=== PATIENT | male | born 1995 | race African-American/Black ===

== ENCOUNTER 2017-02-03 06:23 | Observation (INO) | payer BC ==
[2017-02-03] VITALS (8 sets, daily range): BP systolic 93–148; BP diastolic 45–81
[~2017-02-03] VITALS: Ht 182.9 cm; Wt 76.7 kg
--- NOTE | ~2017-02-03 | S ---
[facility] [place] [address] SURGICAL PATH RPT PROCEDURE Name: ALEX VILLA III Room #: 417-I [facility] Piper Davis#: [id number] Admission: 02/03/17 Date of : 89 Discharge: 02/04/17 Report #: [id number] Path Case #: [id number] PATHOLOGY REPORT COLLECTION DATE: 02/03/2017 RECEIVED DATE: 02/03/2017 SUBMITTING PHYS: Dr. Jered Azar OTHER PHYS: Dr. Cecilio Howard SPECIMEN(S) RECEIVED: A.Gallbladder * * * * * * * * * * * * FINAL DIAGNOSIS: Gallbladder, cholecystectomy: - Mild chronic cholecystitis. - Cholelithiasis. - Incidental lymph node. PATHOLOGIST: Liliana Acosta M.D. REPORT ELECTRONICALLY SIGNED BY: Liliana Acosta M.D. DATE/TIME: 02/05/2017 13:50 * * * * * * * * * * * * GROSS PATHOLOGY: Received in formalin labeled "Alex Villa III, gallbladder," is a 8.7 x 3.2 x 1.5 cm, previously opened and torn gallbladder with green wrinkled serosal surfaces. Opening the gallbladder reveals green yellow velvety mucosa and an average wall thickness of 0.2 cm. Calculi are present, yellow to green, firm and range in size from 1.3 to 2.8 cm in maximum dimensions. No masses are noted grossly. There is a lymph node located, inside the small amount of adipose tissue, near the stapled opening that measures 0.6 x 0.4 x 0.3 cm in maximum dimensions. The lymph node along with textiles sales representative sections from the body and fundus are submitted along with the proximal margin in cassette A1. (JAILYN; 02/04/2017) CLINICAL HISTORY: Cholelithiasis, cholecystitis INITIAL CPT CODE(S): A; 66143 Professional services performed by [facility] at [address] [address] SURGICAL PATH RPT PROCEDURE Name: ALEX VILLA [facility] Room #: [address] [place] [address] Piper Davis#: [id number] Admission: 02/03/17 Date of : 89 Discharge: 02/04/17 Report #: [id number] Path Case #: [id number] , [place] [address] Technical services performed by [facility] at [address] [place] [address], [address], [place] [address]. [facility] [id number] [address] [address] PHONE: [phone] DIRECTOR: Robert Snow M.D. * * * END OF REPORT * * *
[~2017-02-03 06:23] MED LIST: ACETAMINOPHEN-1 EAC1 PO; AMOXICILLIN 50500 M1 PO; APAP/CODEINE ELI5 M1 OR; KEFLEX500 MG PO; NAPROSYN500 MG PO; NOHOMEMEDICATIONS; NORCO 5-325 TA1 EACH PO; PEPCID20 MG PO; PHENERGAN 25 MG25 M1 PO; PHENERGAN 25 MG25 MG PO; ZOFRAN ODT4 MG PO; ZPAK PO
[2017-02-03] MEDS ORDERED: ZOFRAN ODT4 MG (06:29)
[2017-02-03 06:56] LABS: ABSOLUTE NEUTROPHILS 6.1 thou/uL (1.4-8.2); BASOPHILS 0.6 % (0.0-2.0); EOSINOPHILS 0.4 % (0.0-3.0); HEMATOCRIT 45.1 % (42.0-52.0); HEMOGLOBIN 14.9 gm/dL (14.0-18.0); LYMPHOCYTES 21.7 % (24.0-44.0); MCH 30.4 pg (26.0-34.0); MCV 91.9 fL (80.0-100.0); PLATELET COUNT 142 thou/uL (150-400); POLYS 73.3 % (36.0-66.0); RBC 4.91 mil/uL (4.50-6.00); RDW 13.4 % (10.5-14.5); WBC 8.3 thou/uL (4.0-11.0)
[2017-02-03 07:08] LABS: MANUAL DIFF NO
[2017-02-03 07:09] LABS: CALCIUM 9.4 mg/dL (8.5-10.1); CREATININE 1.3 mg/dL (0.7-1.3); POTASSIUM 4.3 mmol/L (3.5-5.1)
[2017-02-03 07:14] LABS: ALBUMIN 4.1 g/dL (3.4-5.0); TOTAL BILIRUBIN 0.5 mg/dL (<0.1-1.0); TOTAL PROTEIN 7.2 g/dL (6.4-8.2)
[2017-02-03 09:24] LABS: URINE BILIRUBIN NEGATIVE (Negative); URINE BLOOD NEGATIVE (Negative); URINE COLOR YELLOW; URINE GLUCOSE-RANDOM* NEGATIVE (Negative); URINE KETONES NEGATIVE (Negative); URINE LEUKOCYTES-REFLEX NEGATIVE (Negative); URINE PROTEIN (DIPSTICK) TRACE (Negative)
[2017-02-04 04:54] VITALS: BP 129/65
[2017-02-04 06:25] LABS: ABSOLUTE NEUTROPHILS 4.7 thou/uL (1.4-8.2); BASOPHILS 0.8 % (0.0-2.0); EOSINOPHILS 0.6 % (0.0-3.0); LYMPHOCYTES 24.3 % (24.0-44.0); MCH 30.2 pg (26.0-34.0); MCHC 33.1 g/dL (28.0-37.0); MCV 91.3 fL (80.0-100.0); MONOCYTES 8.8 % (1.0-8.0); PLATELET COUNT 145 thou/uL (150-400); POLYS 65.5 % (36.0-66.0); RBC 4.27 mil/uL (4.50-6.00); RDW 13.7 % (10.5-14.5); WBC 7.2 thou/uL (4.0-11.0)
[2017-02-04 06:43] LABS: ALBUMIN 3.5 g/dL (3.4-5.0); CALCIUM 8.6 mg/dL (8.5-10.1); CREATININE 1.2 mg/dL (0.7-1.3); MAGNESIUM 1.9 mg/dL (1.8-2.4); PHOSPHORUS 4.5 mg/dL (2.5-4.9); POTASSIUM 3.9 mmol/L (3.5-5.1); TOTAL BILIRUBIN 0.6 mg/dL (<0.1-1.0); TOTAL PROTEIN 6.1 g/dL (6.4-8.2)
[2017-02-04 07:07] LABS: HEMOGLOBIN 12.9 gm/dL (14.0-18.0); MANUAL DIFF NO
[2017-02-04] MEDS ORDERED: HYDROCODONE-AP1 EAC6 PO (08:36)
[2017-02-04] MEDS ORDERED: COLACE 100 MG100 MG PO (08:36)
[2017-02-04 08:53] VITALS: BP 137/70
[2017-02-04 10:40] VITALS: BP 137/70
[2017-02-04] MEDS ORDERED: IBUPROFEN 800800 M1 PO (18:26)
== END 2017-02-04 11:56 | disposition home or self-care (01) ==
LOC: ER 06:23 → EROBS 10:16 → 4E 11:00
PROVIDERS: Emergency Medicine; Otolaryngology
DX: K80.10 Calculus of gallbladder with chronic cholecystitis without obstruction (principal); R56.00 Simple febrile convulsions; F12.90 Cannabis use, unspecified, uncomplicated; Z87.891 Personal history of nicotine dependence
CPT/HCPCS: 50010; 50101; 50249; 50411; 50555; 50886; 50944; 50962; 51489; 51975; 52265; 52266; 54022; 54118; 55245; 55317; 56462; 56525; 56526; 62110; 62900; 70005

== ENCOUNTER 2017-02-04 15:16 | Emergency (ER) | payer BC ==
[~2017-02-04] VITALS: Ht 182.9 cm; Wt 76.7 kg
[~2017-02-04 15:16] MED LIST changes: +COLACE 100 MG100 MG PO; +HYDROCODONE-AP1 EAC6 PO; +ZOFRAN ODT4 MG
[2017-02-04 15:44] LABS: ABSOLUTE NEUTROPHILS 7.6 thou/uL (1.4-8.2); BASOPHILS 0.7 % (0.0-2.0); EOSINOPHILS 0.3 % (0.0-3.0); HEMATOCRIT 42.8 % (42.0-52.0); HEMOGLOBIN 14.2 gm/dL (14.0-18.0); LYMPHOCYTES 15.7 % (24.0-44.0); MCH 30.1 pg (26.0-34.0); MCHC 33.1 g/dL (28.0-37.0); MCV 90.9 fL (80.0-100.0); MONOCYTES 6.6 % (1.0-8.0); PLATELET COUNT 156 thou/uL (150-400); POLYS 76.7 % (36.0-66.0); RBC 4.71 mil/uL (4.50-6.00); RDW 13.4 % (10.5-14.5); WBC 9.9 thou/uL (4.0-11.0)
[2017-02-04 15:45] LABS: MANUAL DIFF NO
[2017-02-04 15:53] LABS: CALCIUM 9.2 mg/dL (8.5-10.1); CREATININE 1.3 mg/dL (0.7-1.3); POTASSIUM 3.7 mmol/L (3.5-5.1)
[2017-02-04 15:57] LABS: ALBUMIN 4.1 g/dL (3.4-5.0); DIRECT BILIRUBIN 0.2 mg/dL (<0.1-0.3); TOTAL BILIRUBIN 0.8 mg/dL (<0.1-1.0); TOTAL PROTEIN 7.2 g/dL (6.4-8.2)
[2017-02-04] MEDS ORDERED: IBUPROFEN 800800 M1 PO (18:26)
== END 2017-02-04 18:38 | disposition home or self-care (01) ==
LOC: ER 15:16
PROVIDERS: Nurse Practitioner
DX: G89.18 Other acute postprocedural pain (principal); R10.84 Generalized abdominal pain; F17.210 Nicotine dependence, cigarettes, uncomplicated; F15.10 Other stimulant abuse, uncomplicated; Z90.49 Acquired absence of other specified parts of digestive tract; Z88.2 Allergy status to sulfonamides

== ENCOUNTER → 2018-05-19 | Outpatient (CLI) | payer BC ==
[~2018-05-19] MED LIST changes: +CIPROFLOXACIN500 M1 PO; +ED-SPAZ0.125 MG PO; +FLAGYL500 MG PO; +IBUPROFEN 800800 M1 PO; +PREDNISONE 20 M20 MG PO; +SENNA-DOCUSATE1 EACH PO; +ULTRACET TABLET1 TAB PO
== END ==
LOC: CAT 09:02
DX: K50.80 Crohn's disease of both small and large intestine without complications (principal)

== ENCOUNTER 2018-12-20 22:43 | Emergency (ER) | payer BC, OTHER ==
[~2018-12-20] VITALS: Ht 182.9 cm; Wt 83.0 kg
[2018-12-21 00:11] VITALS: BP 127/83
== END 2018-12-21 00:20 | disposition home or self-care (01) ==
LOC: ER 22:43
DX: M54.5 Low back pain (principal); K50.90 Crohn's disease, unspecified, without complications; F17.210 Nicotine dependence, cigarettes, uncomplicated; Z88.2 Allergy status to sulfonamides; Z90.49 Acquired absence of other specified parts of digestive tract

== ENCOUNTER 2019-01-12 21:35 | Emergency (ER) | payer BC, OTHER ==
[~2019-01-12] VITALS: Ht 182.9 cm; Wt 83.9 kg
[2019-01-12 22:29] LABS: ABSOLUTE NEUTROPHILS 3.2 thou/uL (1.4-8.2); BASOPHILS 0.9 % (0.0-2.0); HEMATOCRIT 40.4 % (42.0-52.0); HEMOGLOBIN 13.5 gm/dL (14.0-18.0); LYMPHOCYTES 43.6 % (24.0-44.0); MCH 30.1 pg (26.0-34.0); MCHC 33.4 g/dL (28.0-37.0); MONOCYTES 5.7 % (1.0-8.0); PLATELET COUNT 199 thou/uL (150-400); POLYS 48.8 % (36.0-66.0); RBC 4.49 mil/uL (4.50-6.00); RDW 13.4 % (10.5-14.5); WBC 6.5 thou/uL (4.0-11.0)
[2019-01-12 22:38] LABS: CALCIUM 8.6 mg/dL (8.5-10.1); CREATININE 1.3 mg/dL (0.7-1.3); POTASSIUM 3.6 mmol/L (3.5-5.1)
[2019-01-13 00:19] LABS: URINE BILIRUBIN NEGATIVE (Negative); URINE BLOOD NEGATIVE (Negative); URINE CLARITY CLEAR; URINE COLOR YELLOW; URINE GLUCOSE-RANDOM* NEGATIVE (Negative); URINE KETONES NEGATIVE (Negative); URINE LEUKOCYTES NEGATIVE (Negative); URINE NITRITE NEGATIVE (Negative); URINE PROTEIN (DIPSTICK) NEGATIVE (Negative); URINE SPECIFIC GRAVITY 1.025 (1.005-1.035); URINE UROBILINOGEN 0.2 E.U./dl (0.2-1.0)
[2019-01-13 01:09] VITALS: BP 118/54
== END 2019-01-13 01:09 | disposition home or self-care (01) ==
LOC: ER 21:35
PROVIDERS: Emergency Medicine
DX: M54.5 Low back pain (principal); F17.210 Nicotine dependence, cigarettes, uncomplicated; Z90.49 Acquired absence of other specified parts of digestive tract; Z88.2 Allergy status to sulfonamides

== ENCOUNTER 2019-04-26 23:34 | Emergency (ER) | payer BC, OTHER ==
[~2019-04-26] VITALS: Ht 182.9 cm; Wt 81.7 kg
[2019-04-27 00:38] LABS: ABSOLUTE NEUTROPHILS 3.7 thou/uL (1.4-8.2); BASOPHILS 0.6 % (0.0-2.0); EOSINOPHILS 1.2 % (0.0-3.0); HEMATOCRIT 44.7 % (42.0-52.0); HEMOGLOBIN 14.6 gm/dL (14.0-18.0); LYMPHOCYTES 26.8 % (24.0-44.0); MCH 29.7 pg (26.0-34.0); MCHC 32.7 g/dL (28.0-37.0); MCV 90.7 fL (80.0-100.0); PLATELET COUNT 203 thou/uL (150-400); POLYS 65.4 % (36.0-66.0); RBC 4.93 mil/uL (4.50-6.00); RDW 13.3 % (10.5-14.5); WBC 5.6 thou/uL (4.0-11.0)
[2019-04-27 00:40] LABS: CALCIUM 8.7 mg/dL (8.5-10.1); CREATININE 1.1 mg/dL (0.7-1.3); POTASSIUM 3.5 mmol/L (3.5-5.1)
[2019-04-27 00:46] LABS: ALBUMIN 3.7 g/dL (3.4-5.0); TOTAL BILIRUBIN 0.4 mg/dL (<0.1-1.0); TOTAL PROTEIN 6.8 g/dL (6.4-8.2)
[2019-04-27] MEDS ORDERED: ONDANSETRON ODT8 MG PO (01:29)
[2019-04-27] MEDS ORDERED: BUTALB-APAP-CA1 EACH PO (01:29)
[2019-04-27] MEDS ORDERED: TRAMADOL 50 MG50 MG PO (01:29)
[2019-04-27] MEDS ORDERED: LEVSIN0.125 MG PO (01:29)
[2019-04-27 02:39] VITALS: BP 132/80
== END 2019-04-27 02:40 | disposition home or self-care (01) ==
LOC: ER 23:34
PROVIDERS: Emergency Medicine
DX: G43.909 Migraine, unspecified, not intractable, without status migrainosus (principal); K50.90 Crohn's disease, unspecified, without complications; R11.2 Nausea with vomiting, unspecified; F17.210 Nicotine dependence, cigarettes, uncomplicated; Z90.49 Acquired absence of other specified parts of digestive tract; Z88.2 Allergy status to sulfonamides

== ENCOUNTER 2019-08-09 20:39 | Emergency (ER) | payer OTHER ==
[~2019-08-09] VITALS: Ht 182.9 cm; Wt 81.7 kg
[~2019-08-09 20:39] MED LIST changes: +BUTALB-APAP-CA1 EACH PO; +LEVSIN0.125 MG PO; +ONDANSETRON ODT8 MG PO; +TRAMADOL 50 MG50 MG PO
[2019-08-09 20:46] VITALS: BP 118/79
[2019-08-09] MEDS ORDERED: DAY TIME COLD-237 ML PO (20:51)
[2019-08-09 22:30] LABS: HEMATOCRIT 44.1 % (42.0-52.0); HEMOGLOBIN 14.6 gm/dL (14.0-18.0); MCH 29.6 pg (26.0-34.0); MCHC 33.1 g/dL (28.0-37.0); MCV 89.5 fL (80.0-100.0); PLATELET COUNT 189 thou/uL (150-400); RBC 4.92 mil/uL (4.50-6.00); RDW 13.4 % (10.5-14.5); WBC 7.1 thou/uL (4.0-11.0)
[2019-08-09 22:33] LABS: CALCIUM 9.7 mg/dL (8.5-10.1); CREATININE 1.4 mg/dL (0.7-1.3); POTASSIUM 3.5 mmol/L (3.5-5.1)
[2019-08-09 22:40] LABS: ALBUMIN 4.2 g/dL (3.4-5.0); TOTAL BILIRUBIN 0.4 mg/dL (<0.1-1.0); TOTAL PROTEIN 7.8 g/dL (6.4-8.2)
[2019-08-10 00:14] LABS: ABSOLUTE NEUTROPHILS 5.3 thou/uL (1.4-8.2)
[2019-08-10 00:15] LABS: PLATELET ESTIMATE NORMAL
[2019-08-10] MEDS ORDERED: NORFLEX100 MG PO (01:11)
[2019-08-10] MEDS ORDERED: IBUPROFEN 600600 M1 PO (01:11)
[2019-08-10] MEDS ORDERED: ZOFRAN ODT4 MG PO (01:11)
[2019-08-10] MEDS ORDERED: TYLENOL WITH CO1 TA1 PO (01:12)
== END 2019-08-10 02:20 | disposition home or self-care (01) ==
LOC: ER 20:39
PROVIDERS: Emergency Medicine
DX: J10.1 Influenza due to other identified influenza virus with other respiratory manifestations (principal); G43.909 Migraine, unspecified, not intractable, without status migrainosus; F17.210 Nicotine dependence, cigarettes, uncomplicated; Z88.2 Allergy status to sulfonamides; Z90.49 Acquired absence of other specified parts of digestive tract

== ENCOUNTER 2020-01-03 21:38 | Emergency (ER) | payer BC ==
[~2020-01-03] VITALS: Ht 182.9 cm; Wt 81.7 kg
[~2020-01-03 21:38] MED LIST changes: +DAY TIME COLD-237 ML PO; +IBUPROFEN 600600 M1 PO; +NORFLEX100 MG PO; +TYLENOL WITH CO1 TA1 PO
[2020-01-03] MEDS ORDERED: PERCOCET PO (23:21)
[2020-01-03] MEDS ORDERED: SENNA PLUS TAB1 EACH PO (23:21)
[2020-01-03 23:54] VITALS: BP 122/45
== END 2020-01-03 23:57 | disposition home or self-care (01) ==
LOC: ER 21:38
DX: S42.292A Other displaced fracture of upper end of left humerus, initial encounter for closed fracture (principal); G43.909 Migraine, unspecified, not intractable, without status migrainosus; F17.210 Nicotine dependence, cigarettes, uncomplicated; Z88.2 Allergy status to sulfonamides; W18.39XA Other fall on same level, initial encounter; Y93.89 Activity, other specified; Y92.89 Other specified places as the place of occurrence of the external cause; Y99.8 Other external cause status